=== PATIENT | female | born 1960 | race Caucasian/White ===

== ENCOUNTER → 2020-11-27 | Outpatient (CLI) | payer BC | LOC: KOH-I 15:13 | DX: M79.662 Pain in left lower leg (principal); M13.862 Other specified arthritis, left knee; S83.242A Other tear of medial meniscus, current injury, left knee, initial encounter; M71.22 Synovial cyst of popliteal space [Baker], left knee; R93.6 Abnormal findings on diagnostic imaging of limbs; X58.XXXA Exposure to other specified factors, initial encounter | CPT/HCPCS: 73721 ==

== ENCOUNTER → 2021-04-16 | Outpatient (CLI) | payer OTHER | LOC: KOH-I 12:54 | DX: R91.8 Other nonspecific abnormal finding of lung field (principal) | CPT/HCPCS: 71250 ==

== ENCOUNTER → 2021-11-06 | Outpatient (CLI) | payer OTHER | LOC: CT 11-05 10:00 | DX: K57.92 Diverticulitis of intestine, part unspecified, without perforation or abscess without bleeding (principal); R93.3 Abnormal findings on diagnostic imaging of other parts of digestive tract; K76.0 Fatty (change of) liver, not elsewhere classified | CPT/HCPCS: Q9967 ==

== ENCOUNTER → 2021-11-24 | Day surgery (SDC) | payer OTHER ==
[~2021-11-24] MED LIST: GLUCOPHAGE 500500 MG PO; HYDROCHLOROTH12.5 M1 PO; LISINOPRIL20 MG PO; MELOXICAM15 MG PO; MONTELUKAST SOD10 MG PO; PRAVASTATIN SOD40 MG PO
== END | disposition home or self-care (01) ==
LOC: OR 07:12
DX: Z12.11 Encounter for screening for malignant neoplasm of colon (principal); K64.8 Other hemorrhoids; K64.4 Residual hemorrhoidal skin tags; K29.50 Unspecified chronic gastritis without bleeding; K31.9 Disease of stomach and duodenum, unspecified; K21.00 Gastro-esophageal reflux disease with esophagitis, without bleeding; K22.10 Ulcer of esophagus without bleeding; K31.819 Angiodysplasia of stomach and duodenum without bleeding; Z86.010 Personal history of colon polyps; I10 Essential (primary) hypertension; J45.909 Unspecified asthma, uncomplicated; E11.9 Type 2 diabetes mellitus without complications; F17.200 Nicotine dependence, unspecified, uncomplicated; Z79.84 Long term (current) use of oral hypoglycemic drugs; Z79.899 Other long term (current) drug therapy; Z88.0 Allergy status to penicillin
CPT/HCPCS: 43239; G0121; 82962; J7040